=== PATIENT | female | born 1945 | race Caucasian/White ===

== ENCOUNTER → 2017-01-28 | Day surgery (SDC) | payer MEDICARE, BC ==
[~2017-01-28] MED LIST: ALBUTEROL17 GM INH; ASPIRIN81 M2 PO; FAMOTIDINE PO; FLUTICASONE PROPIONA; MULTI VITAMIN1 EACH PO; PANTOPRAZOLE SO40 MG PO; REMERON15 MG PO; SINGULAIR PO; XANAX0.5 MG PO; ZINC SULFATE PO; ZYRTEC PO; [UNRECOGNIZED DRUG - OTHER]
--- NOTE | ~2017-01-28 | OR ---
Unit #: [id number] #: [id number] Patient: YONG REAVES [id number] [address] [place], [place] [address] [id number] O MR#: [id number] NAME: YONG REAVES. ROOM: Date of Procedure: 01/28/2017 Admission Date: 01/28/2017 Surgeon: Roman Hollingsworth M.D. : 1945 Attending Physician: Roman Hollingsworth M.D. Primary Care Physician: Silverio Alaniz M.D. OPERATIVE REPORT PRIMARY CARE PHYSICIAN Silverio Alaniz M.D. PREOPERATIVE DIAGNOSES The patient presented with history of retrosternal ascending heartburn, postprandial dyspepsia, and nocturnal awakening due to reflux. In addition, she needs a colorectal cancer screening having had family history of colon cancer. PROCEDURES PERFORMED Upper gastrointestinal endoscopy and biopsies as well as colonoscopy up to cecum and terminal ileum with excellent preparation and good visualization. POSTOPERATIVE DIAGNOSES For upper endoscopy: 1. The patient had grade 1 distal erosive esophagitis. 2. There was mild prepyloric antral erosive gastritis. 3. Rest of examination up to third part of duodenum was normal. Biopsies obtained from the antrum for CLOtest. For colonoscopy: 1. There were small internal hemorrhoids. 2. Mild sigmoid and descending colon diverticulosis. 3. Rest of the examination up to cecum and terminal ileum was normal. The quality of prep was excellent. RECOMMENDATIONS The patient will be started on pantoprazole 40 mg p.o. daily. She will be followed up in the office in 3 months' time. She needs a repeat colonoscopy in 5 years. SEDATION USED MAC. DESCRIPTION OF PROCEDURE Following detailed explanation of the potential risks and complications of an upper endoscopy and a colonoscopy, namely perforation, bleeding, and complications related to sedation, the patient was brought to GI lab and laid in the left lateral decubitus position. Lubricated tip of the Olympus video upper endoscope was passed through the bite block into the proximal esophagus under direct vision. The entire esophageal mucosa was examined and the patient was noted to have grade 1 distal erosive esophagitis. The scope was then advanced into the gastric cavity and the Unit #: [id number] #: [id number] Patient: YONG REAVES latter was insufflated. Mucosa of the fundus, body, and antrum was examined. Mild prepyloric antral gastritis noted. Pylorus was intubated with visualization of the normal duodenal bulb and second and third part of the duodenum. Upon withdrawal and retroflexion, incisura, cardia, and greater curve examined and a biopsy obtained from the antrum for CLOtest. The scope was then withdrawn in the distal esophagus. Entire esophageal mucosa was examined all the way up to pharynx. No additional findings noted. The examination table was then turned by 180 degrees and the patient positioned for a colonoscopy. A digital rectal examination was performed, which was normal. Lubricated tip of the Olympus video colonoscope was inserted through the anus and advanced under direct vision. The scope was advanced and passed up to sigmoid into descending colon. Scant small diverticula were noticed in this area. The scope tip was then navigated all the way up to cecum with visualization of ileocecal valve and the appendiceal orifice. Preparation was excellent with good visualization and photodocumentation was obtained. Last several inches of terminal ileum also visualized after intubation of the ileocecal valve and appeared normal. Successive segments of the colonic mucosa were examined upon withdrawal and appeared unremarkable. There being no polyps, mass lesions, or AVMs. Other than the scant diverticula seen in the left side, the patient was also noted to have small internal hemorrhoids seen at the anal verge. The scope was then withdrawn. The patient returned to the recovery area. She tolerated the procedure without any postprocedure complications. Dictated by... Douglas Miller/floyd TD: 01/29/2017 04:53 JOB #: [id number] OPERATIVE REPORT X Roman Hollingsworth MD X PROCEDURE OPERATIVE NOTE
[2017-01-28 14:16] LABS: BASOPHIL% 0.7 % (0-2.5); EOSINOPHIL# 0.1 X10e3 (0-0.7); EOSINOPHIL% 0.9 % (0.0-7.0); HEMOGLOBIN 12.4 gm/dL (12.0-16.0); LYMPHOCYTE# 1.4 X10e3 (1.0-3.5); LYMPHOCYTE% 26.3 % (17.0-45.0); MEAN CELL VOLUME 92.7 FL (83-96); MEAN CORPUSCULAR HEMOGLOBIN 30.4 PG (28-34); MEAN CORPUSCULAR HGB CONC 32.8 g/dL (30-36); MEAN PLATELET VOLUME 8.7 FL (6.5-11.5); MONOCYTE# 0.3 X10e3 (0-1.0); MONOCYTE% 5.8 % (3.0-12.0); NEUTROPHIL# 3.6 X10e3 (1.5-7.1); NEUTROPHIL% 66.3 % (40-75); PLATELET COUNT 201 X10e3 (140-420); RED BLOOD COUNT 4.09 X10e (3.90-5.30); RED CELL DISTRIBUTION WIDTH 13.7 % (11.0-15.5); WHITE BLOOD COUNT 5.4 X10e3 (4.0-10.5)
[2017-01-28 14:17] LABS: DIFF IND NO
[2017-01-28 15:20] LABS: FOLATE (FOLIC ACID) >23.6 ng/mL (>5.8)
[2017-01-28 15:33] LABS: IRON SERUM 60 ug/dL (28-170); TOTAL IRON BINDING CAPACITY 328 ug/dL (269-535); TRANSFERRIN 234 mg/dL (192-382); TRANSFERRIN SATURATION 18 % (20-50)
== END | disposition home or self-care (01) ==
LOC: COPS 12:25
PROVIDERS: Internal Medicine Gastroenterology
DX: Z12.11 Encounter for screening for malignant neoplasm of colon (principal); K20.9 Esophagitis, unspecified; K29.00 Acute gastritis without bleeding; K64.8 Other hemorrhoids; K57.30 Diverticulosis of large intestine without perforation or abscess without bleeding; K21.9 Gastro-esophageal reflux disease without esophagitis; F41.9 Anxiety disorder, unspecified; Z80.0 Family history of malignant neoplasm of digestive organs; Z88.0 Allergy status to penicillin; Z88.5 Allergy status to narcotic agent; Z79.899 Other long term (current) drug therapy; Z90.710 Acquired absence of both cervix and uterus
CPT/HCPCS: 43239; G0105; 82607; 82728; 82746; 83540; 83550; 84443; 85025; 87077